=== PATIENT | male | born 2000 | race Caucasian/White ===

== ENCOUNTER 2023-04-23 14:38 | Emergency (ER) | payer OTHER, SELFPAY ==
[2023-04-23 14:40] VITALS: BP 137/81
[2023-04-23 15:07] LABS: INR 1.11; PT 14.1 Sec (11.4-14.6)
[2023-04-23 15:15] LABS: ALT (SGPT) 16 U/L (0-50); AST (SGOT) 23 U/L (17-59); Albumin 4.9 g/dl (3.5-5.0); Alkaline Phosphatase 63 U/L (38-126); Blood Urea Nitrogen 14 mg/dl (9-20); Calcium 9.4 mg/dl (8.4-10.2); Carbon Dioxide 28 mmol/L (22-30); Chloride 103 mmol/L (98-107); Glucose 121 mg/dl (70-99); Potassium 4.1 mmol/L (3.5-5.1); Sodium 136 mmol/L (135-145); Total Protein 7.7 g/dl (6.3-8.2); eGFR > 60.00
[2023-04-23 15:23] LABS: Absolute Eosinophils 0.1 10^3/uL (0-0.7); Absolute Lymphocytes 1.7 10^3/uL (1.2-3.4); Nucleated Red Blood Cells % 0 % (-)
[2023-04-23 16:20] LABS: White Blood Cell Count 6.3 10^3/uL (4.8-10.8)
[2023-04-23 16:21] LABS: Hematocrit 45.1 % (39.0-52.0); Hemoglobin 17.2 g/dL (13.0-18.0); Mean Corpuscular Volume 85.6 fL (80.0-94.0); Red Blood Cell Count 5.27 10^6/uL (4.70-6.10)
[2023-04-23 16:22] LABS: Mean Corp Hgb Conc. 38.1 g/dL (33.0-37.0); Mean Corpuscular Hgb 32.6 pg (27.0-31.0); Platelet Count 238 10^3/uL (130-400); Red Cell Dist. Width 11.9 % (11.5-14.5)
[2023-04-23 16:23] LABS: % Lymphocytes 28.2 % (20.5-51.1); % Monocytes 8.8 % (1.7-9.3); % Neutrophils 59.8 % (42.2-75.2); Mean Platelet Volume 11.2 fL (7.4-10.4)
[2023-04-23 16:24] LABS: % Basophils 1.1 % (0-2); % Eosinophils 1.6 % (0-6); % Immature Granulocytes 0.5 % (0-0.5); Absolute Neutrophils 3.7 10^3/uL (1.4-6.5)
[2023-04-23 16:25] LABS: Absolute Basophils 0.1 10^3/uL (0-0.2); Absolute Monocytes 0.6 10^3/uL (0.1-0.6)
[2023-04-23 17:02] VITALS: BP 123/75
--- NOTE | 2023-04-23 18:10 | ED.GENMED ---
History of Present Illness
General
Chief Complaint: Chest Pain
Source: patient
Exam Limitations: none
Time Seen by Provider: 04/23/23 17:56
Nursing documentation reviewed up to this point in time: agreed with
Travel History
Have you had any contact with someone who has COVID-19?: No
Do you have any symptoms of coronavirus? Fever > 100 degrees, chills, cough, shortness of breath, sore throat, loss of taste or smell, muscle aches, or headache?: No
History of Present Illness
History of Present Illness:
The patient is a pleasant 22-year-old man with a past medical history of thoracic outlet obstruction who comes in with complaints of 2 weeks of intermittent chest pain. Patient describes it as across his front, feeling like a tightness. At times
it is worse when he takes a deep breath. Patient denies leg pain and leg swelling. He denies cough and shortness of breath
Past History
Past History
ED Past Medical History: Psychiatric and Other (Thoracic outlet obstruction)
ED Past Surgical History: Orthopedic
Social History
Tobacco: Non-smoker
Alcohol: None
Drug: None
Personal: Single
Living: with family
Employment: Student
Family History
Family History: Other
Review of Systems
Review of Systems
Allergies reviewed?: Yes
Other source history: family
All Other Systems: ROS reviewed and negative except as documented in HPI and ROS
Constitutional: Reports no symptoms
EENT: Reports no symptoms
Respiratory: Reports no symptoms
Cardiac: Reports chest pain
ABD/GI: Reports no symptoms
: Reports no symptoms
Musculoskeletal: Reports no symptoms
Skin: Reports no symptoms
Neurological: Reports no symptoms
Endocrine: Reports no symptoms
Hematologic/Lymphatic: Reports no symptoms
Psychiatric: Reports no symptoms
Phy Exam
Physical Exam
Physical Exam:
Physical Exam
General: no apparent distress, not acutely ill
Neck: supple. no meningeal signs. normal psoterior pharynx
Heart: s1/s2 regular rate and rhythm, no murmur. equal radial pulses.
Lungs: no acute respiratory distress. clear bilaterally
Abdomen: normal bowel sounds. not tender. no CVAT
Neuro: alert and oriented. no focal neurological deficits
Skin: no rash
Psychiatric: well kept. interactive and cooperative
Extremities: no edema. no calf tenderness. negative homans. good distal pulses
Scores
Heart Score for Chest Pain Patients
STEMI patient?: No
History: Slightly or Non-Suspicious
ECG: Normal
Age: </= 45 years
Risk Factors: No Risk Factors
Troponin: </= Normal Limit
Heart Score for Chest Pain Patients: 0
Heart Score Risk: 2.5% MACE over next 6 weeks
Course
Orders/Labs/Results
Orders:
Orders
04/23/23 14:42
EKG [Electrocardiogram (*1)] Urgent
Reason for Study: Chest Pain
04/23/23 14:43
EKG- Treatment ONCE
04/23/23 14:45
CR Chest - 2 Views Urgent
Comment:
Reason For Exam: pain
Venous Doppler Upr Ext Left [US Periph Venous UPPER Ext LT] Urgent
Comment:
Reason For Exam: pain hx of thoracic outlet syndrome
04/23/23 14:49
Complete Blood Count/With Diff Urgent
Comprehensive Metabolic Panel Urgent
Prothrombin Time Urgent
04/23/23 18:10
CT Chest Pe Study Urgent
Comment:
Reason For Exam: CP
04/23/23 18:12
Troponin I Urgent
Abnormal Lab Results
04/23/23
14:49
MCH 32.6 H pg
(27.0-31.0)
MCHC 38.1 H g/dL
(33.0-37.0)
MPV 11.2 H fL
(7.4-10.4)
Glucose 121 H mg/dl
(70-99)
04/23/23 14:49
04/23/23 14:49
Vital Signs
Initial and Last Documented VS:
Initial Vital Signs
Temp Pulse Resp BP Pulse Ox
97.4 F 79 16 137/81 98
04/23/23 14:40 04/23/23 14:40 04/23/23 14:40 04/23/23 14:40 04/23/23 14:40
Last Documented Vital Signs
Temp Pulse Resp BP Pulse Ox
97.4 F 69 18 123/75 98
04/23/23 14:40 04/23/23 17:02 04/23/23 17:02 04/23/23 17:02 04/23/23 17:02
MDM/Problems Addressed
Differential Diagnosis Includes:
Musculoskeletal chest pain, PE, acute coronary syndrome
MDM/Problems Addressed:
Patient presents with acute chest pain intermittently for 2 weeks
Acute Exacerbation and/or Progression of Chronic Illness:
Patient is acutely hypertensive but it is mild and there is no sign of heart failure or neurological deficit
Acute Exacerbation and/or Progression of Chronic Illness: HTN
*Radiology
Radiology exam reviewed: radiology read reviewed
*Pulse Oximetry
Patient hypoxic: no
*EKG
Interpreted by ED Provider?: Yes
Interpretation: normal
Comparison EKG: no comparison EKG present
Rate: normal
Rhythm: sinus
Pierson: normal axis
Interval: normal interval
QRS Pattern: normal QRS
Ischemia: no ischemia
*Coffee Taster Interpretation
Rate: normal
Interpretation: normal
Rhythm: sinus
*Critical Care Note
Total Time (30-74mins, 75-104mins- exclusive of procedures): Not Applicable
Data Reviewed
Review of Other/Old Records Reveals: Operative Reports (Venogram report reviewed from 08/[address] Browning when patient was diagnosed with thoracic outlet syndrome)
Source: patient and family (Mother)
ED Attending Note
-
Portions of this chart may have been created with voice recognition software.� Occasional wrong word or��sound alike� substitutions may have occurred due to the inherent limitations of voice recognition software.
Discharge Plan
Departure
Patient Disposition: Home (Routine Discharge)
Date of Disposition: 04/23/23
Time of Disposition: 19:38
Patient with high blood pressure during this ER visit?: Yes
Condition: Good
Covid-19: Not Applicable
Discharge Problem:
Chest pain in adult
Instructions: Chest Pain PCP Follow Up
Prescriptions:
No Action
mirtazapine 30 mg Tablet
30 mg PO HS
Referrals:
Leonides Welch MD [Family Provider] -
Interventions
Interventions:
*Risk Screen - Suicide Last Done: 04/23/23 14:40
*General Assessment Last Done: 04/23/23 14:40
*Neglect/Abuse Screening Last Done: 04/23/23 18:02
*ED COVID-19 Vaccine History Last Done: 04/23/23 14:40
[2023-04-23 18:43] LABS: Troponin I < 0.012 ng/ml
[2023-04-23 19:56] VITALS: BP 137/83
== END 2023-04-23 19:56 | disposition home or self-care (01) ==
LOC: EMR 14:38
PROVIDERS: EMERGENCY PHYSICIAN Emergency Medicine; FAMILY PHYSICIAN Family Medicine
DX: R07.89 Other chest pain (principal); I10 Essential (primary) hypertension
CPT/HCPCS: 99284; 71046; 71275; 80053; 84484; 85025; 85610; 93005; 93971; Q9967

== ENCOUNTER → 2023-06-24 15:00 | Outpatient (REF) | payer OTHER, SELFPAY | LOC: RCS 15:00 | PROVIDERS: ATTENDING PHYSICIAN Internal Medicine Cardiovascular Disease; FAMILY PHYSICIAN Family Medicine | DX: R07.89 Other chest pain (principal) | CPT/HCPCS: 93306 ==

== ENCOUNTER → 2023-06-25 15:05 | Outpatient (REF) | payer OTHER, SELFPAY | LOC: RCS 15:05 | PROVIDERS: ATTENDING PHYSICIAN Internal Medicine Cardiovascular Disease; FAMILY PHYSICIAN Family Medicine | DX: R07.89 Other chest pain (principal) | CPT/HCPCS: 93017 ==

== ENCOUNTER → 2024-10-20 15:35 | Outpatient (REF) | payer OTHER, SELFPAY | LOC: RAD 15:35 | PROVIDERS: ATTENDING PHYSICIAN Surgery Vascular Surgery; FAMILY PHYSICIAN Family Medicine | DX: G54.0 Brachial plexus disorders (principal) | CPT/HCPCS: 93971 ==

== ENCOUNTER 2025-01-29 07:01 | Day surgery (SDC) | payer OTHER, SELFPAY ==
[2025-01-29] VITALS (12 sets, daily range): BP systolic 113–132; BP diastolic 65–84; BMI 32.6
[2025-01-29 07:56] LABS: Hematocrit 40.9 % (39.0-52.0); Hemoglobin 14.9 g/dL (13.0-18.0); Mean Corp Hgb Conc. 36.4 g/dL (33.0-37.0); Mean Corpuscular Volume 87.4 fL (80.0-94.0); Platelet Count 211 10^3/uL (130-400); Red Cell Dist. Width 12.2 % (11.5-14.5)
[2025-01-29 08:08] LABS: INR 1.09; PT 14.2 Sec (11.4-14.6)
[2025-01-29 08:09] LABS: APTT 28.2 Sec (23.4-35.0)
[2025-01-29] MEDS: NSS 306 ML IV (08:19)
[2025-01-29 08:20] LABS: Blood Urea Nitrogen 13 mg/dl (9-20); Calcium 8.9 mg/dl (8.4-10.2); Carbon Dioxide 26 mmol/L (22-30); Chloride 105 mmol/L (98-107); Estimated Creatinine Clearance > 125 ml/min; Glucose 99 mg/dl (70-99); Potassium 4.2 mmol/L (3.5-5.1); Sodium 139 mmol/L (135-145); eGFR > 60.00
--- NOTE | 2025-01-29 09:27 | W.SUR.PREOP ---
Pre-Operative Surgical Note
-
I have examined this patient prior to the performance of the scheduled procedure.
The patient's condition is unchanged from the time of the current History and
Physical and the patient is able to undergo the scheduled procedure.
--- NOTE | 2025-01-29 11:04 | OR.RPT ---
Operative Report
Operative Report
Date of Operation: 01/29/2025
Pre Op Diagnosis:
1. Chronic left subclavian vein occlusion
2. Venous thoracic outlet syndrome
Post Op Diagnosis:
1. Chronic left subclavian vein occlusion
2. Venous thoracic outlet syndrome
Procedure:
1. Diagnostic venogram, left central veins
2. Ultrasound-guided percutaneous access to the right common femoral vein
3. Introduce wire and catheter into central venous system from right femoral vein access
Surgeon: Isak Browning III, MD
Manager [place]: Pat Power MD PGY-4
Anesthesia: Sedation with local
Fluoroscopy:
31 min
263 mGy
49.32 gy.cm2
Complications: None
Estimated Blood Loss: Less than 10 cc
History and Indications for Procedure: 24-year-old male with chronic left subclavian vein occlusion related to venous thoracic outlet syndrome. He remained interested in all surgical possibilities to treat the subclavian vein occlusion and I
explained that this may include thoracic outlet decompression due to the underlying mechanism of the occlusion. Prior to moving forward with any surgical approach I wanted to confirm that the subclavian vein occlusion would be crossable from an
endovascular approach as I dont believe there would be a benefit to performing first rib resection in the setting of a chronically occluded subclavian vein that could not be crossed. He had previously undergone a left upper extremity venogram via
basilic vein access and a failed attempt at crossing the subclavian vein occlusion from that approach in August 2022. I brought him to the operating room today to attempt this from the femoral vein approach.
Procedure in Detail: Ronaldo Payton was correctly identified and placed supine on the operating table. After adequate induction of anesthesia the bilateral groins were prepped and draped in the usual sterile fashion. A timeout was performed with
the nursing and anesthesia staff confirming the patient's identity as well as the nature and laterality of the procedure.
The right common femoral vein was identified under ultrasound guidance. The vein was compressible and without any luminal filling defects. The proposed puncture site was infiltrated with local anesthesia. Under ultrasound guidance we accessed the
right common femoral vein, with a micropuncture needle and upsized to a 5 Fr sheath over a [employer] wire.
Using a Harry catheter and Glidewire I navigated retrograde through the iliac venous system, IVC and into the superior vena cava. I then selected the left innominate vein and advanced the wire and the catheter to the vicinity of the first rib. A
diagnostic venogram was performed confirming our position within the innominate vein. The innominate was patent with no stenosis identified. Reflux was identified into the left internal jugular vein. There was no filling of the subclavian vein
consistent with chronic occlusion. The patient was systemically heparinized. A 5 Chinese 70 cm sheath was advanced into position in the innominate vein over a [employer] wire. Using the Harry catheter and Glidewire I attempted to cross the subclavian
vein occlusion. We could only advance the wire and catheter into several of the venous collateral branches surrounding the subclavian vein occlusion. I was not able to obtain wire purchase into the occluded segment of subclavian vein. Multiple
attempts were made but I was ultimately unsuccessful at crossing the subclavian vein occlusion.
At this point I concluded the procedure. The sheath tip was pulled back into the right external iliac vein. Protamine was administered.
The patient tolerated the procedure well and was taken to the recovery area in stable condition.
Attestation: I was present and responsible for the entire procedure.
Signed:
Isak Browning III, MD
Vascular Surgery
[facility]
[2025-01-29] MEDS: NSS 1000 IV (11:56)
[2025-01-29] MEDS: ROXICODONE 5 MG PO (12:00)
== END 2025-01-29 14:45 | disposition home or self-care (01) ==
LOC: CATH 07:01
PROVIDERS: ATTENDING PHYSICIAN Surgery Vascular Surgery; PRIMARYCARE PHYSICIAN Family Medicine
DX: I82.B22 Chronic embolism and thrombosis of left subclavian vein (principal); I87.1 Compression of vein; G54.0 Brachial plexus disorders; F41.9 Anxiety disorder, unspecified; F32.A Depression, unspecified
CPT/HCPCS: 36011; 75860; 80048; 85027; 85610; 85730; 93005; C1769; C1887; C1894